=== PATIENT | female | born 1985 | race Two or more races ===

== ENCOUNTER 2017-09-10 16:56 | Emergency (ER) | payer MEDICAID ==
[~2017-09-10] VITALS: Ht 170.2 cm; Wt 68.4 kg
[2017-09-10 16:58] VITALS: BP 133/82
[2017-09-10] MEDS ORDERED: ASPIRIN 81 MG TABLET CHEW PO ONE (17:30)
[2017-09-10 17:35] LABS: BASOPHILS # (AUTO) 0.03 x10^3/uL (0-0.1); BASOPHILS % (AUTO) 0 % (0-1); EOSINOPHILS % (AUTO) 1 % (1-7); LYMPHOCYTES # (AUTO) 3.06 x10^3/uL (1-3.4); LYMPHOCYTES % (AUTO) 37 % (22-44); MD NO; MEAN CORPUSCULAR HEMOGLOBIN 32.7 pg (27.0-34.8); MEAN CORPUSCULAR HGB CONC 33.9 g/dL (32.4-35.8); MEAN CORPUSCULAR VOLUME 96.5 fL (80-100); MEAN PLATELET VOLUME 8.4 fL (7.4-10.4); MONOCYTES # (AUTO) 0.56 x10^3/uL (0.2-0.8); MONOCYTES % (AUTO) 7 % (2-9); NEUTROPHILS # (AUTO) 4.45 x10^3/uL (1.8-6.8); NEUTROPHILS % (AUTO) 54 % (42-75); PLATELET COUNT 245 x10^3/uL (130-400); RED BLOOD COUNT 4.57 x10^6/uL (3.82-5.3); RED CELL DISTRIBUTION WIDTH 12.3 % (9.6-15.2)
[2017-09-10 17:45] LABS: ALBUMIN 4.1 g/dL (3.4-5.0); ANION GAP 7 mmol/L (5-15); CALCIUM 8.7 mg/dL (8.5-10.1); CHLORIDE 110 mmol/L (98-107)
[2017-09-10 17:49] LABS: CREATININE 0.83 mg/dL (0.55-1.02); TROPONIN I < 0.015 ng/mL (0.000-0.045)
== END 2017-09-10 19:09 | disposition home or self-care (01) ==
LOC: ED 19:03
DX: R07.89 Other chest pain (principal)
CPT/HCPCS: 36415; 71046; 80048; 82040; 83880; 84484; 85025; 93005; 99285